=== PATIENT | male | born 1940 | race Caucasian/White ===

== ENCOUNTER → 2017-07-07 | Outpatient (CLI) | payer MEDICARE, OTHER ==
[~2017-07-07] MED LIST: ASPI-1471 PO; ASPI-715 PO; ASPI-816; CALC-757 PO; CLOP75TA PO; DIPH0.5D12 IM; FERR324T13 PO; FINA5TAB67 PO; FISH1CAP15 PO; GLUC-158 PO; KET10 PO; LEVO50TA80 PO; LEVO50TA86 PO; LEVO75TA73 PO; LUTE20TA PO; METH500T6 PO; METO25TA93 PO; MULT1CAP59 PO; PER PO; TAMS0.4C70 PO; TAMS0.4C76 PO; UBID100C9 PO; VALA500T63 PO; WARF5TAB23 PO
[2017-07-07 08:34] LABS: PLATELET COUNT, AUTOMATED 275 K/uL (150-450)
[2017-07-07 08:58] LABS: LDL CHOLESTEROL 122 mg/dl
== END ==
LOC: LAB 07:56
PROVIDERS: ATTEND Internal Medicine
DX: Z12.5 Encounter for screening for malignant neoplasm of prostate (principal); N40.1 Benign prostatic hyperplasia with lower urinary tract symptoms; E03.9 Hypothyroidism, unspecified
CPT/HCPCS: 36415; 81001; 84443; 85025; G0103; 82040; 82247; 82310; 82374; 82435; 82465; 82565; 82947; 83718; 84075; 84132; 84153; 84155; 84295; 84450; 84460; 84478; 84520

== ENCOUNTER → 2018-07-20 | Outpatient (CLI) | payer MEDICARE, OTHER ==
[~2018-07-20] MED LIST changes: -ASPI-816; +ASPI-870; -DIPH0.5D12 IM; +DIPH0.5S2 IM
[2018-07-20 07:36] LABS: PLATELET COUNT, AUTOMATED 296 K/uL (150-450)
[2018-07-20 08:19] LABS: LDL CHOLESTEROL 106 mg/dl
== END ==
LOC: LAB 07:09
PROVIDERS: ATTEND Internal Medicine
DX: Z12.5 Encounter for screening for malignant neoplasm of prostate (principal); E03.9 Hypothyroidism, unspecified; N40.1 Benign prostatic hyperplasia with lower urinary tract symptoms; I71.2 Thoracic aortic aneurysm, without rupture
CPT/HCPCS: 36415; 81001; 84443; 85025; G0103; 82040; 82247; 82310; 82374; 82435; 82465; 82565; 82947; 83718; 84075; 84132; 84153; 84155; 84295; 84450; 84460; 84478; 84520

== ENCOUNTER 2018-08-28 09:35 | Emergency (ER) | payer MEDICARE, OTHER ==
[~2018-08-28 09:35] MED LIST changes: +TAMS0.4C25 PO
--- NOTE | 2018-08-28 09:43 | ER Report ---
History and Physical Time Seen By : 09:42 HPI/ROS CHIEF COMPLAINT: felt pop in chest while pushing snow. HISTORY OF PRESENT ILLNESS: This is a 77 year old male. He was pushing heavy wet snow on his deck today, and felt a pop in lower left chest wall. Not short of breath. Does worsen with deep breaths. No other chest pain. Worsened with lifting weights/exercising. History of open heart surgery for aortic aneurysm 3 years ago, no problems since then. No nausea or vomiting. No cough. No dizziness. Allergies: Coded Allergies: Iodinated Contrast- Oral and IV Dye (Verified Allergy, Mild, rash, 08/28/18) Home Meds Active Scripts Levothyroxine Sodium (LEVOTHYROXINE SODIUM) 75 Mcg Tablet, 75 MCG PO QDAY, #90 TAB 4 Refills Prov:WATSON TAPIA MD 07/30/18 Tamsulosin Hcl (FLOMAX) 0.4 Mg Cap.er.24h, 1-2 CAPSULE PO QHS, #180 CAP 4 Refills 1 capsule alternating with 2 capsules daily Prov:WATSON TAPIA MD 07/30/18 Aspirin (ASPIR 81) 81 Mg Tablet.dr, 1 TAB PO QDAY, #30 TAB Prov:WATSON TAPIA MD 07/17/17 Reported Medications Valacyclovir Hcl (VALACYCLOVIR) 500 Mg Tablet, 1 TAB PO QDAY PRN for Cold Sore 07/14/16 Lutein (LUTEIN) 20 Mg Tablet, 1 TAB PO QDAY 07/15/15 Fish Oil/Dha/Epa (FISH OIL 1,200 MG FISH OIL) 1 Each Capsule, 1 EACH PO QDAY, CAPSULE 07/15/15 Ubidecarenone (CO Q-10) 100 Mg Capsule, 1 TAB PO QDAY, CAPSULE 07/15/15 Gluc/Vahe-Msm#1/Vit C/Evert/Bor (HDWVFPA-FWFHY-IOU COMPLEX CPLT) 1 Each Tablet, 1 TAB PO QDAY 07/15/15 Methylcellulose (FIBER) 500 Mg Tablet, 4 TAB PO QDAY 07/15/15 Calcium Citrate/Vitamin D3 (CALCIUM CITRATE - VIT D TABLET) 1 Each Tablet, 1 EACH PO QDAY 07/15/15 Multivitamin (MULTIVITAMINS) 1 Each Capsule, 1 CAP PO QDAY, CAPSULE 07/15/15 Reviewed Nurses Notes: Yes Hx Smoking: No Smoking Status: Never Smoker Constitutional Vital Sign - Last 24 Hours 08/28/18 08/28/18 08/28/18 08/28/18 09:40 09:45 10:00 10:15 Pulse 57 56 58 52 Resp 12 25 20 21 B/P (MAP) 143/88 125/78 (94) Pulse Ox 94 97 95 94 O2 Delivery Room Air 08/28/18 08/28/18 08/28/18 08/28/18 10:30 10:45 11:00 11:15 Pulse 52 55 54 56 Resp 11 21 18 11 B/P (MAP) 121/79 (93) 123/81 (95) Pulse Ox 93 93 93 94 Physical Exam General Appearance: Alert, no acute distress. Eyes: Pupils equal and round no injection. ENT: Normal oral mucosa. Moist mucous membranes. Respiratory: Chest with some tenderness palpating over strernum and the left condral margin/ribs. Cardiac: regular rate and rhythm, no murmurs. Gastrointestinal: Abdomen is soft and non tender, nondistended. Musculoskeletal: Extremities have full range of motion. Chest wall as noted. No pain in the back. Skin: No rashes or lesions. Neuro: Alert and oriented x3, no deficits. DIFFERENTIAL DIAGNOSIS: After history and physical exam differential diagnosis was considered for chest pain during activity with signs pointing to musculoskeletal pain. Normal vital signs. Medical Decision Making EKG/Imaging Imaging 2 VIEWS CHEST INDICATION: Left-sided sternal pain. Popping sensation while shoveling snow. COMPARISON: None available FINDINGS: The lungs are clear. No effusion or pneumothorax is seen. Heart size and mediastinal contours are normal. Patient has undergone prior median sternotomy. Sternal wires appear intact on both projections. IMPRESSION: 1. No radiographic evidence of active disease. Report Dictated By: Narinder Gleason at 08/28/2018 10:17 AM RIBS LEFT INDICATION: Left-sided pain after shoveling snow.. COMPARISON: None Available. FINDINGS: Single view chest shows heart size within normal limits. There is no focal infiltrate or consolidation. There is no pneumothorax or pleural effusion. Heart size is within normal limits. Views of left ribs show no acute fracture or acute osseous abnormality. IMPRESSION: 1. No acute cardiopulmonary process. 2. No acute osseous abnormality of the left ribs or evidence of pneumothorax. Report Dictated By: Narinder Gleason at 08/28/2018 10:39 AM ED Course/Re-evaluation ED Course Imaging of chest/ribs is normal. Musculoskeletal pain discussed. Decision to Disposition Date: August 28, 2018 Decision to Disposition Time: 11:17 Depart Departure Latest Vital Signs Vital Signs Date Time Temp Pulse Resp B/P (MAP) Pulse Ox O2 Delivery O2 Flow Rate FiO2 08/28/18 11:15 56 11 94 08/28/18 11:00 123/81 (95) 08/28/18 09:40 Room Air Impression: Primary Impression: Rib injury Condition: Improved Disposition: HOME OR SELF-CARE Referrals: WATSON TAPIA MD (PCP) Patient Instructions: Chest Wall Pain (ED) Additional Instructions: Your pain today appears to have been due to an injury to the chest wall, likely the cartilage or soft tissue. No problems noted on evaluation today. Rest and increase fluid intake recommended. Gentle range of motion, but no heavy activity until feeling better. Can use Tylenol or Ibuprofen as needed for pain. ARPITA ALMANZA MD August 28, 2018 09:42
--- NOTE | 2018-08-28 10:22 | RADIOLOGY IMAGING REPORT ---
FACILITY: [facility] - [place] PATIENT NAME: Chilo Parker : 1940 MR: [id number] V: [id number] EXAM DATE: ORDERING PHYSICIAN: ARPITA ALMANZA TECHNOLOGIST: Location: [facility] - [place] Patient: Chilo Parker : 1940 Visit/Account:[id number] Date of Sevice: 08/28/2018 2 VIEWS CHEST INDICATION: Left-sided sternal pain. Popping sensation while shoveling snow. COMPARISON: None available FINDINGS: The lungs are clear. No effusion or pneumothorax is seen. Heart size and mediastinal contours are nor mal. Patient has undergone prior median sternotomy. Sternal wires appear intact on both projections. IMPRESSION: 1. No radiographic evidence of active disease. Report Dictated By: Narinder Gleason at 08/28/2018 10:17 AM Report E-Signed By: Narinder Gleason at 08/28/2018 10:18 AM WSN:[id number]
--- NOTE | 2018-08-28 10:47 | RADIOLOGY IMAGING REPORT ---
FACILITY: [facility] PATIENT NAME: Chilo Parker : 1940 MR: [id number] V: [id number] EXAM DATE: ORDERING PHYSICIAN: ARPITA ALMANZA TECHNOLOGIST: Location: [facility] [place] Patient: Chilo Parker : 1940 Visit/Account:[id number] Date of Sevice: 08/28/2018 RIBS LEFT INDICATION: Left-sided pain after shoveling snow.. COMPARISON: None Available. FINDINGS: Single view chest shows heart size within normal limits. There is no focal infiltrate or co nsolidation. There is no pneumothorax or pleural effusion. Heart size is within normal limits. Views of left ribs show no acute fracture or acute osseous abnormality. IMPRESSION: 1. No acute cardiopulmonary process. 2. No acute osseous abnormality of the left ribs or evidence of pneumothorax. Report Dictated By: Narinder Gleason at 08/28/2018 10:39 AM Report E-Signed By: Narinder Gleason at 08/28/2018 10:43 AM WSN:[id number]
[2018-08-28 11:00] VITALS: BP 123/81
== END 2018-08-28 11:28 | disposition home or self-care (01) ==
LOC: ER 09:47
DX: R07.81 Pleurodynia (principal)
CPT/HCPCS: 71046; 71100; 99284